=== PATIENT | female | born 1940 | race Caucasian/White ===

== ENCOUNTER 2024-01-15 14:56 | Outpatient (AMB) | payer MEDICARE, SELFPAY ==
--- NOTE | 2024-01-15 14:07 | MHC.PC.OV ---
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 Intake Note: New patient visit Bioinformatics Analyst Required: No Allergies hexachlorophene [From Phisohex] Allergy (Unknown, Verified 01/15/24 14:09) Unknown anabolic steroid Allergy (Unknown, Uncoded 01/15/24 14:09) Unknown warfarin Allergy (Unknown, Uncoded 01/15/24 15:17) nose bleeds Medication List - Last Reconciled 01/15/24 by STEVEN Ohara acetaminophen (Tylenol Extra Strength) 500 mg PO Q6H PRN aspirin 81 mg PO DAILY escitalopram oxalate (Lexapro) 5 mg PO DAILY sotalol 80 mg PO BID Tobacco use date assessed: 01/15/24 Fall risk assessment: 1 Fall in past year Last assessed Fall Risk: 01/15/24 Dental Screening Dental Screen Date: 01/15/24 Did you have a dental visit in the last 12 months?: No Did you have a dental problem in the last 6 months where you did not have access to dental care?: No Was dental information given to patient?: Patient declined HPI HPI Comments History of Present Illness Details The patient is an 83-year-old female with a past medical history of atrial fibrillation, GI bleed and emphysema and anxiety presenting for follow-up. She transferred from my panel at [facility]. She is on oral B12 supplements for B12 deficiency. She reports experiencing fatigue, which began after starting on Sotalol for Atrial fibrillation. She has an ablation in 2016. She is followed by Dr. Grande. 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 She plans to discuss this with him at her follow up in February. She also notes that Lexapro, 10 mg daily. It was started five years ago for anxiety related to her late 's dementia, but questions its current necessity and dosage due to possible contribution to fatigue. She has also had a partial tear in her left rotator cuff for approximately 15 years, characterized by pain upon movement and lying on the shoulder. The pain is currently manageable with Tylenol. Additionally, the patient reports heel pain initially thought to be plantar fasciitis, but was diagnosed as neuralgic pain by a plant breeder scientist, which she finds temporarily relieved through foot soaks and Tyelenol. She had a GI bleed when she was treated with Coumadin. She has been off anticoagulation since then. She declines a bone density test. She had a mammogram within the past year, per patient. She was evaluated for colonoscopy screening, and it was not recommended to proceed due to the risk of complications and her age. She has a history of skin cancer on her nose and sees [facility] annually for exams. Patient was informed and verbally consented to the use of an ambient scribe for clinic note documentation during this visit. ROS - General: Reports excessive fatigue. - Neurologic: Denies focal neurological deficits but reports imbalance when walking her dog uphill she is afraid of falling. She uses her 's cane. - Musculoskeletal: Reports pain in left shoulder with specific movements, and right heel pain when walking. - Psychological: Reports anxiety previously, currently feels well-controlled. PE: Constitutional: Alert, in no distress. Neck: Supple, Full range of motion. No lymphadenopathy. Respiratory: Clear to auscultation. Cardiovascular: S1 S2 regular. No murmurs. Neurologic: No focal neurological deficits. Symmetric patellar reflexes. Moves all extremities spontaneously. Sensation intact bilaterally. Musculoskeletal: Right heel tender to palpation. Positive empty can test with left shoulder exam. Patient has limited abduction with the left shoulder which causes pain. Left shoulder nontender to palpation. Psychiatric: Normal mood and affect. [facility] Medical History (Updated 01/15/24 @ 16:05 by STEVEN Ohara) Heart valve disorder Skin cancer Anxiety Fatigue History of GI bleed History of atrial fibrillation Left rotator cuff tear B12 deficiency Cataracts, bilateral Surgical History Hx of appendectomy Family History (Updated 01/15/24 @ 15:19 by Dolly Mahmood CMA) Mother Alzheimer disease Father Cardiovascular disease Social History (Updated 01/15/24 @ 15:20 by Dolly Mahmood CMA) Housing: Other (mobile home) Alcohol intake: former Patient Tobacco Use Status: Former Tobacco user Cigarette Packs Per Day: 2 Years Smoked: 35 e-Cigarette/Vaping Use: Never Used Second Hand Smoke Exposure: No service: No Current occupational status: retired Cognitive needs: No Hearing needs: Yes (trouble hearing) Vision needs: No Physical exam (Primary Care) Vital Signs: Last Vital Signs Pulse 65 01/15/24 15:20 BP 106/60 01/15/24 15:20 Pulse Ox 95 01/15/24 15:20 Oxygen Delivery Method Room Air 01/15/24 15:20 BMI result Body Mass Index 29.1 Tobacco/Smoking Status: Tobacco use Status Tobacco use date assessed 01/15/24 01/15/24 15:25 Patient Tobacco Use Status Former Tobacco user 01/15/24 15:25 e-Cigarette/Vaping Use Never Used 01/15/24 15:25 Coding Level of Care Code Est Pt Level 4 (10822) Complex EM visit Add On G2211 Diagnoses Fatigue R53.83 B12 deficiency E53.8 History of atrial fibrillation Z86.79 Left rotator cuff tear M75.102 Anxiety F41.9 Skin cancer C44.90 Heart valve disorder I38 Assessment & Plan Assessment & Plan (1) Fatigue: Code(s): R53.83 - Other fatigue Category: Medical (2) B12 deficiency: Code(s): E53.8 - Deficiency of other specified B group vitamins Category: Medical (3) History of atrial fibrillation: Code(s): Z86.79 - Personal history of other diseases of the circulatory system Category: Medical (4) Left rotator cuff tear: Code(s): M75.102 - Unspecified rotator cuff tear or rupture of left shoulder, not specified as traumatic Category: Medical (5) Anxiety: Code(s): F41.9 - Anxiety disorder, unspecified Category: Medical (6) Skin cancer: Code(s): C44.90 - Unspecified malignant neoplasm of skin, unspecified Category: Medical (7) Heart valve disorder: Code(s): I38 - Endocarditis, valve unspecified Category: Medical Plan Cardiovasvular: Continue with the current management approach with Sotalol, with follow-up to reassess fatigue and consider adjustment to medication with cardiology. Fatigue: Potentially due to medication side effects. See below regarding Lexapro. Check labs. Generalized Anxiety Disorder: Reduce Lexapro to 5 mg while monitoring for increased anxiety; revert back to 10 mg if symptoms worsen. Left Rotator Cuff Tear: Continue use of Tylenol as needed for pain management. Discussed potential for physical therapy for strengthening if desired by the patient, though cortisone injection was declined. Refer to physical therapy. Maximum dose of Tylenol 500 to a 1000 mg every 8 hours as needed, 3000 mg per 24 hours. Right Heel Neuralgia: Await further information from podiatry notes for more specific intervention. Consider non-pharmacological approaches including proper footwear and foot soaks. Continue Tylenol as needed for pain control. Refer to physical therapy for gait coordination and fall prevention. Continue annual skin exams with [facility]. Patient declined influenza vaccine. She received RSV vaccine, and she will get the COVID booster at her pharmacy. Follow up in 6 months Orders: Orders Vitamin B12 Today E53.8 - Deficiency of other specified B group vitamins, M75.102 - Unspecified rotator cuff tear or rupture of left shoulder, not specified as traumatic, Z86.79 - Personal history of other diseases of the circulatory system, Z87.19 - Personal history of other diseases of the digestive system TSH reflex Free T4 Today R53.83 - Other fatigue Comprehensive Met. Panel Today E53.8 - Deficiency of other specified B group vitamins, M75.102 - Unspecified rotator cuff tear or rupture of left shoulder, not specified as traumatic, Z86.79 - Personal history of other diseases of the circulatory system, Z87.19 - Personal history of other diseases of the digestive system Complete Blood Count Auto Diff Today E53.8 - Deficiency of other specified B group vitamins, M75.102 - Unspecified rotator cuff tear or rupture of left shoulder, not specified as traumatic, Z86.79 - Personal history of other diseases of the circulatory system, Z87.19 - Personal history of other diseases of the digestive system PT Evaluation and Treatment Today M75.102 - Unspecified rotator cuff tear or rupture of left shoulder, not specified as traumatic, Z91.81 - History of falling
[2024-01-15 15:20] VITALS: BP 106/60; PULSE 65; O2SAT 95; BMI 29.1
== END 2024-01-15 15:59 | disposition home or self-care (01) ==
PROVIDERS: PCP Physician Assistant Medical; Visit Provider Physician Assistant Medical
DX: R53.83 Other fatigue (principal); E53.8 Deficiency of other specified B group vitamins; Z86.79 Personal history of other diseases of the circulatory system; M75.102 Unspecified rotator cuff tear or rupture of left shoulder, not specified as traumatic; F41.9 Anxiety disorder, unspecified; C44.90 Unspecified malignant neoplasm of skin, unspecified; I38 Endocarditis, valve unspecified

== ENCOUNTER → 2024-01-15 14:56 | Outpatient (BNVA) | payer MEDICARE, SELFPAY | PROVIDERS: PCP Physician Assistant Medical; Visit Provider Physician Assistant Medical | DX: R53.83 Other fatigue (principal); E53.8 Deficiency of other specified B group vitamins; M75.102 Unspecified rotator cuff tear or rupture of left shoulder, not specified as traumatic; F41.1 Generalized anxiety disorder; G58.8 Other specified mononeuropathies; I38 Endocarditis, valve unspecified; Z86.79 Personal history of other diseases of the circulatory system; Z85.828 Personal history of other malignant neoplasm of skin; Z79.899 Other long term (current) drug therapy | CPT/HCPCS: 99212 ==

== ENCOUNTER 2024-01-16 10:00 | Outpatient (REF) | payer MEDICARE, SELFPAY ==
[2024-01-16 11:19] LABS: MANUAL DIFF FLAG NO
[2024-01-16 11:24] LABS: Basophils Percent Auto 0.5 % (0-2); Eosinophils Absolute Auto 0.1 X10*3/uL (0.0-0.4); Eosinophils Percent Auto 2.3 % (0-4); Hematocrit 48.6 % (37.0-47.0); Hemoglobin 15.9 g/dl (12.0-16.0); Imm Gran Abs Auto 0.01 X10*3/uL (0.00-0.03); Imm Gran Pct Auto 0.2 % (0.0-0.4); Lymphocytes Percent Auto 17.1 % (20-40); Mean Corpuscular HGB Conc 32.7 g/dl (31.0-35.0); Mean Corpuscular Hemoglobin 32.5 pg (27.0-33.0); Mean Corpuscular Volume 99.4 fL (80.0-98.0); Mean Platelet Volume 9.5 fL (9.4-12.3); Monocytes Absolute Auto 0.6 X10*3/uL (0.1-1.2); Monocytes Percent Auto 10.6 % (2-11); Neutrophils Absolute Auto 4.1 x10*3/uL (2.0-8.3); Neutrophils Percent Auto 69.3 % (45-73); Platelet Count 239 X10*3/uL (160-400); Red Blood Count 4.89 X10*6/uL (4.20-5.50); Red Cell Distribution Width 13.3 % (11.0-16.0)
[2024-01-16 12:30] LABS: Alanine Aminotransferase 16 U/L (0-31); Albumin Level 3.6 g/dL (3.5-5.0); Alkaline Phosphatase 70 U/L (39-117); Anion Gap 13 (12-20); Aspartate Amino Transferase 23 U/L (5-31); Bilirubin Total 0.7 mg/dL (0.0-1.0); Blood Urea Nitrogen 15 mg/dL (9-16); Calcium 9.4 mg/dL (8.4-10.2); Carbon Dioxide 23 mmol/L (22-29); Chloride 106 mmol/L (96-108); Estimated Glomerular Filt Rate > 60; Glucose Random 125 mg/dL (60-115); Potassium 4.2 mmol/L (3.3-5.1); Sodium 138 mmol/L (135-145); TSH reflex Free T4 1.47 uIU/mL (0.32-4.0); Total Protein 6.9 g/dL (6.5-8.0)
[2024-01-16 12:33] LABS: Vitamin B12 522 pg/mL (200-900)
== END 2024-01-16 10:01 | disposition home or self-care (01) ==
LOC: HO.WFDLDS 10:00
PROVIDERS: Visit Provider Physician Assistant Medical
DX: E53.8 Deficiency of other specified B group vitamins (principal); M75.102 Unspecified rotator cuff tear or rupture of left shoulder, not specified as traumatic; Z86.79 Personal history of other diseases of the circulatory system; Z87.19 Personal history of other diseases of the digestive system; R53.83 Other fatigue
CPT/HCPCS: 36415; 80053; 82607; 84443; 85025

== ENCOUNTER 2024-03-03 13:50 | Outpatient (RCR) | payer MEDICARE, SELFPAY ==
--- NOTE | 2024-03-03 15:23 | MHC.PT.EP ---
[facility] [place] Office [place] Office [place] Office [address] [phone] F: [phone] F: [phone] F: [phone] F: [phone] Physical Therapy Plan of Care Date of Evaluation: 03/03/24 Date of Surgery: NA Diagnosis: RC TEAR L, BALANCE DEFICIT Assessment: Pt IS 83 YO F REFERRED TO PT FROM [facility] WITH L SHLDER PAIN (CHRONIC PARTIAL TEAR RC) AND BAL DEFICIT. Pt PRESENT WITH B HIP FLEX WEAKNESS, BALANCE ISSUES, L SHLDER FLEX AND ABD WEAKNESS WITH +MOD IMPINGEMENT TEST. SHOULD BENEFIT FROM PT TO ADDRESS THESE ISSUES Frequency and Duration: The patient will be seen 1X/WK X 8 WKS (40$CO-PAY) Short Term Goals: 1. INCREASED AWARENESS POSTURE AND SHLDER CARE 2. I HEP WITH DC EX PLAN 3. GT WITH LRAD WITHOUT IMBALANCE Correction Goals: 1. NO FALLS 2. DECREASED L SHLDER PAIN AT LEAST 50% WITH ADLS 3. IMPROVED L SHLDER ROM FOR FLEX/ABD X 10-20 DEGREES 4. IMPROVED TIME WITH TUG (13 SEC SOC) AND INCREASED REPS WITH 30 SEC SIT>STAND (1 SOC) Treatment Plan: Modalities to reduce pain, spasms and effusion. Manual therapy to restore motion and function. Therapeutic exercise to improve strength and flexibility. Neuromuscular re-education for posture and balance. Therapeutic activities to return to functional activities of daily living. Electronically signed by: WARNER SIMEON PT Please sign and return to therapist. Thank you for your referral.
--- NOTE | 2024-03-09 13:38 | MHC.PT.OD ---
[facility] [place] Office [place] Office [place] Office [address] [phone] F: [phone] F: [phone] F: [phone] F: [phone] Physical Therapy Daily Note Diagnosis: RC TEAR L, BALANCE DEFICIT Date of Surgery: NA Date of Evaluation: 03/03/24 Date of Treatment: 03/09/24 Treatments to Date: Cancellations to Date: No Shows to Date: Authorized Visits: Insurance End Date: Precautions/ Contraindications:SKIN CA HEART VALVE DISORDER L RTC TEAR (15 YRS AGO) ANXIETY Subjective: Pt WAS AT MD OFFICE FOR ROUTINE CHECK UP AND MENTIONED L SHLDER PAIN AND BALANCE ISSUES Pain Score and Location: 7 L SHLDER Objective Flowsheet: Tests & Measures PT EVAL Exercises BIKE FOR WARM UP PRN INST IN AND PERF AAROM SHLDER FLEX WITH CANE X 5 R SEATED HIP FLEX TO BE DONE X 10 R B (TRIAL SLR BUT SIGNIF CHALLENGE JESSICA ON L)..ABLE TO PERF 5- 8 REPS THEN SIGNIF FATIGUE DIST EX SHEET ED RE EVAL FINDINGS, RX PLAN, POSTURE ED WITH USE TOWEL ROLL LORDOSIS (BORROWED OUR TOWEL BECAUSE HER TOWELS TOO BIG) AND PILLOW FOR L SHLDER SUPPORT Modalities Assessment: 03/09/24: Pt called into the office to state she is electing to cancel all of her future appts due to $40 copayment/visit. Pt was educated re: can absolutely defer copayment and can be set up on payment plan with the billing department. Despite this pt states she is on a fixed income and has been struggling financially for the past year. Therapist inquired if she was receiving any assistance such as MOW which she states she is not interested in my daughter is close. Therapist did not want to pry further however patient may benefit from inquiry to see if she is eligible for any supplemental support?? - May benefit from community navigation screen ? Therapist informed patient she would let her PCP, referring provider Alem Biswas know we spoke. Patient states, Tell Alem I say hi! Pt was seen for initial evaluation with [facility] on 03/03/23 and was given a few exercises. I asked her if she had any questions or concerns regarding the exercises she was given and she mentioned she was irritated with towel roll trial so she was encouraged to stop this. I have had this shoulder issue for years anyway. Pt advised she was welcome to think about options and we let her know she can call back should she change her mind. Pt IS 83 YO F REFERRED TO PT FROM [facility] WITH L SHLDER PAIN (CHRONIC PARTIAL TEAR RC) AND BAL DEFICIT. Pt PRESENT WITH B HIP FLEX WEAKNESS, BALANCE ISSUES, L SHLDER FLEX AND ABD WEAKNESS WITH +MOD IMPINGEMENT TEST. SHOULD BENEFIT FROM PT TO ADDRESS THESE ISSUES PT Plan: Pt electing to stop therapy due to financial cost $40 copay/visit Short Term Goals: 1. INCREASED AWARENESS POSTURE AND SHLDER CARE 2. I HEP WITH DC EX PLAN 3. GT WITH LRAD WITHOUT IMBALANCE Film Mounter Goals: 1. NO FALLS 2. DECREASED L SHLDER PAIN AT LEAST 50% WITH ADLS 3. IMPROVED L SHLDER ROM FOR FLEX/ABD X 10-20 DEGREES 4. IMPROVED TIME WITH TUG (13 SEC SOC) AND INCREASED REPS WITH 30 SEC SIT>STAND (1 SOC) Electronically signed by: Danyelle Mccauley, PT, DPT
== END 2024-03-23 09:27 | disposition home or self-care (01) ==
LOC: HO.PTWFD 13:50
PROVIDERS: PCP Physician Assistant Medical; Visit Provider Physician Assistant Medical
DX: M75.102 Unspecified rotator cuff tear or rupture of left shoulder, not specified as traumatic (principal); Z91.81 History of falling
CPT/HCPCS: 97110; 97162; 97535

== ENCOUNTER 2024-07-12 11:43 | Outpatient (AMB) | payer MEDICARE, SELFPAY ==
--- NOTE | 2024-07-12 11:50 | MHC.PC.OV ---
Vital Signs 07/12/24 11:57 Height 5 ft 5.5 in Weight 185 lb 2 oz BMI 30.3 BP 104/68 Blood Pressure Location Rt brachial Position Sitting Pulse 75 Pulse Source Pulse Oximeter Temp 98.6 F Temp Source Temporal Artery Scan Pulse Oximetry (%) 95 Oxygen Delivery Method Room Air Intake Visit Reasons: follow up - see comments Intake Note: Kate presents in the office today for a follow up. Allergies hexachlorophene [From Phisohex] Allergy (Unknown, Verified 07/12/24 11:53) Unknown Seasonal Allergies Allergy (Verified 07/12/24 11:53) Cough anabolic steroid Allergy (Unknown, Uncoded 07/12/24 11:53) Unknown warfarin Allergy (Unknown, Uncoded 07/12/24 11:53) nose bleeds Tobacco use date assessed: 07/12/24 Fall risk assessment: 2 + Falls in past year Last assessed Fall Risk: 07/12/24 Dental Screening Dental Screen Date: 07/12/24 Did you have a dental visit in the last 12 months?: No Did you have a dental problem in the last 6 months where you did not have access to dental care?: No Was dental information given to patient?: Patient declined HPI HPI Comments History of Present Illness Details The patient is an 83-year-old female with a past medical history of atrial fibrillation, GI bleed and emphysema and anxiety presenting for follow-up. She is on oral B12 supplements for B12 deficiency. She reports stable fatigue which began after starting on Sotalol for Atrial fibrillation. She has an ablation in 2017. She is followed by Dr. Grande. Patient reported she was diagnosed with a leaky valve by echocardiogram. She is overdue for follow up. She denies chest pain, palpitations, dizziness, syncope or leg swelling. She takes a baby aspirin daily. She was previously on Coumadin which was discontinued due to GI bleed. Anxiety-she reduce the dose of Lexapro from 10 mg to 5 mg after her last appointment, and she is feeling fine on this. It was started five years ago for anxiety related to her late 's dementia. Her depression screening is mildly positive, but she is not interested in increasing the dose of the medication. Declines therapy. Patient [place] the [place] in [place]. She really likes it there. Patient says she has very good friends, and she has a dog that she walks 4 or 5 times a day. She is content. She has also had a partial tear in her left rotator cuff for approximately 15 years, characterized by pain upon movement and lying on the shoulder. The pain is currently manageable with Tylenol as needed. She went to physical therapy, but 1 session was 45 dollars so she stopped going after that. She stretches at home. Her symptoms are stable. She is not interested in further evaluation or therapy at this time or x-rays. She has a history of skin cancer on her nose and sees [facility] annually for exams. She declines colonscopy, mammogram, bone density test. She also declines immunizations. ROS: Constitutional: No unexplained weight loss, fever, chills, increased fatigue or night sweats. Respiratory: No shortness of breath, cough or sputum production. Cardiovascular: No chest pain, chest pressure or chest discomfort. No palpitations or pedal edema. Gastrointestinal: No anorexia, nausea, vomiting or diarrhea. No abdominal pain or blood in stool. Neurologic: No headache, dizziness, syncope, unilateral weakness, ataxia, numbness or tingling in the extremities. Musculoskeletal: See HPI Skin: No rash Psychiatric: See HPI Physical exam: Constitutional: Alert, in no distress. Neck: Supple, Full range of motion. No lymphadenopathy. Respiratory: Clear to auscultation. Cardiovascular: S1 S2 regular. No murmurs. Gastrointestinal: Patient declined exam. Neurologic: No focal neurological deficits. Musculoskeletal: No gross deformities. Normal range of motion. Extremities: Warm and well perfused. No clubbing, cyanosis or edema. Psychiatric: Normal mood and affect [facility] Medical History (Updated 01/15/24 @ 16:05 by STEVEN Ohara) Heart valve disorder Skin cancer Anxiety Fatigue History of GI bleed History of atrial fibrillation Left rotator cuff tear B12 deficiency Cataracts, bilateral Surgical History Hx of appendectomy Family History Mother Alzheimer disease Father Cardiovascular disease Social History (Updated 07/12/24 @ 11:55 by Rupa Gonzalez MA) Housing: Other (mobile home) Alcohol intake: current Comment: Wine Patient Tobacco Use Status: Former Tobacco user Cigarette Packs Per Day: 2 Years Smoked: 35 e-Cigarette/Vaping Use: Never Used Second Hand Smoke Exposure: No service: No Current occupational status: retired Cognitive needs: No Hearing needs: Yes (trouble hearing) Vision needs: No Questionnaire PHQ-9 Over the last 2 weeks, how often have you been bothered by any of the following problems? 1. Little interest or pleasure in doing things: several days 2. Feeling down, depressed, or hopeless: several days 3. Trouble falling or staying asleep, or sleeping too much: not at all 4. Feeling tired or having little energy: several days 5. Poor appetite or overeating: more than half the days 6. Feeling bad about yourself - or that you are a failure or have let yourself or your family down: not at all 7. Trouble concentrating on things, such as reading the newspaper or watching television: not at all 8. Moving or speaking so slowly that other people could have noticed. Or the opposite - being so fidgety or restless that you have been moving around a lot more than usual: not at all 9. Thoughts that you would be better off or of hurting yourself in some way: not at all Total score: 5 Depression Screening Interpretation: Positive Depression Screening Follow-up: Existing condition Depression Screening Done: Yes 94700 - PHQ-9 Billing: Yes Source: Developed by Drs. Cornelio Richardson, Mindy Chavez, Golden Knutson and colleagues, with an educational deya from [employer]. Thrive Questionnaire Date Thrive assessed: 07/12/24 I am a: Patient What is your living situation today?: I have a steady place to live Within the past 12 months, did the food you bought not last and you didn't have the money to get more?: Never true Within the past 12 months, did you worry whether your food would run out before you got money to buy more?: Never true Do you have trouble paying for medicines?: No Do you have trouble getting transportation to medical appointments?: No Do you have trouble paying your heating and electricity bill?: No Do you have trouble taking care of your child, family member or friend?: No Do you have trouble with day-to-day activities such as bathing, preparing meals, shopping, managing finances, etc.?: No Are you currently unemployed and looking for a job?: No Are you interested in more education?: No Please select the resources that you would like help with: None Currently or been in a relationship where the following occur: I choose not to answer THRIVE Score: 0 AUDIT C Alcohol Use Questionnaire (AUDIT-C) 1. How often do you have a drink containing alcohol?: Monthly or less 2. How many drinks containing alcohol do you have on a typical day when you are drinking?: 1 or 2 3. How often do you have six or more drinks on one occasion?: Never Total Score: 1 Score Reviewed/Action Taken: No CHASE-7 AMB Questionnaire CHASE-7 Date CHASE - 7 assessed: 07/12/24 Feeling nervous, anxious, or on edge: 0 = Not at all Not being able to stop or control worryin = Several days Worrying too much about different things: 0 = Not at all Trouble relaxin = Not at all Being so restless that it is hard to sit still: 0 = Not at all Becoming easily annoyed or irritable: 0 = Not at all Feeling afraid as if something awful might happen: 0 = Not at all Total CHASE-7 score (0-4 normal; 5-9 mild; 10-14 moderate; 15-21 severe): 1 Source: Developed by Drs. Cornelio Richardson, Mindy Chavez, Golden Knutson and colleagues, with an educational deya from [employer]. CHASE-7 Assessment Billing CHASE-7 Assessment Tool: CHASE-7 Assessment 83307 Physical exam (Primary Care) Tobacco/Smoking Status: Tobacco use Status Tobacco use date assessed 01/15/24 07/12/24 11:51 Patient Tobacco Use Status Former Tobacco user 07/12/24 11:55 e-Cigarette/Vaping Use Never Used 07/12/24 11:55 Depression Screening Interpretation: Positive Depression Screening Follow-up: Existing condition Currently or been in a relationship where the following occur: I choose not to answer Coding Level of Care Code Est Pt Level 4 (29929) Complex EM visit Add On G2211 Diagnoses B12 deficiency E53.8 History of atrial fibrillation Z86.79 Left rotator cuff tear M75.102 Anxiety F41.9 Skin cancer C44.90 Additional Codes PHQ-9 - 33425 - PHQ-9 Billing: Yes ([id number]) CHASE-7 Assessment Billing - CHASE-7 Assessment Tool: CHASE-7 Assessment 81970 ([id number]) Assessment & Plan Assessment & Plan (1) B12 deficiency: Code(s): E53.8 - Deficiency of other specified B group vitamins Category: Medical Plan: Continue supplementation. Check B12. Check blood count. (2) History of atrial fibrillation: Code(s): Z86.79 - Personal history of other diseases of the circulatory system Category: Medical Plan: Followed by Cardiology. She is overdue for follow up but stable. Placed routine referral. Continue sotalol and baby aspirin. (3) Left rotator cuff tear: Code(s): M75.102 - Unspecified rotator cuff tear or rupture of left shoulder, not specified as traumatic Category: Medical Plan: Recommended x-ray to make sure there are no other causes for symptoms like advanced osteoarthritis or a bone tumor or growth. Patient declined at this time. She is not interested in further evaluation or treatment right now. (4) Anxiety: Code(s): F41.9 - Anxiety disorder, unspecified Category: Medical Plan: Stable. Continue Lexapro 5 mg daily. (5) Skin cancer: Code(s): C44.90 - Unspecified malignant neoplasm of skin, unspecified Category: Medical Plan: Continue skin exams per Dermatology. Plan Follow up in 6 months. Orders: Orders Vitamin B12 and Folate Today E53.8 - Deficiency of other specified B group vitamins, F41.9 - Anxiety disorder, unspecified, I38 - Endocarditis, valve unspecified, Z86.79 - Personal history of other diseases of the circulatory system Basic Metabolic Panel Today E53.8 - Deficiency of other specified B group vitamins, F41.9 - Anxiety disorder, unspecified, I38 - Endocarditis, valve unspecified, Z86.79 - Personal history of other diseases of the circulatory system Lipid Panel Today E53.8 - Deficiency of other specified B group vitamins, F41.9 - Anxiety disorder, unspecified, I38 - Endocarditis, valve unspecified, Z86.79 - Personal history of other diseases of the circulatory system Complete Blood Count Auto Diff Today E53.8 - Deficiency of other specified B group vitamins, F41.9 - Anxiety disorder, unspecified, I38 - Endocarditis, valve unspecified, Z86.79 - Personal history of other diseases of the circulatory system Referrals Cardiology Referral I38 - Endocarditis, valve unspecified, Z86.79 - Personal history of other diseases of the circulatory system
[2024-07-12 11:57] VITALS: BP 104/68; PULSE 75; TEMP 37; O2SAT 95; BMI 30.3
--- OUTSIDE RECORDS SUMMARY | 2024-07-12 12:30 | XMS_ITS | Clinical Summary ---
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 Name Role Phone Unavailable Primary Care Provider Unavailabl e Social History Tobacco Use Types Packs/Day Years Used Date Smoking Tobacco: Never Assessed Comments Unknown Sex and Gender Information Value Date Recorded Sex Assigned at Not on file Legal Sex Female 7:35 PM EST Gender Identity Not on file Sexual Orientation Not on file Plan of Treatment Health Maintenance Due Date Last Done Comments DTaP,Tdap,and Td Vaccines (1 - Tdap) 1959 Pneumococcal Vaccine: 50+ Ye ars (1 of 1 - PCV) 1988 Zoster Vaccines (1 of 2) 1988 RSV Immunization Adult Patie nts (1 - 1-dose 75+ series) 2013 COVID-19 Vaccine ( - 2023-2 5 season) 2023 Influenza Vaccine (Season Ended) 2024 HIB Vaccines Aged Out No longer eligi ble based on patient's age to complete this topic HPV Vaccines Aged Out No longer eligi ble based on patient's age to complete this topic Hepatitis A Vaccines Aged Out No long er eligible based on patient's age to complete this topic Hepatitis B Vaccines Aged Out No long er eligible based on patient's age to complete this topic IPV Vaccines Aged Out No longer eligi ble based on patient's age to complete this topic MMR Vaccines Aged Out No longer eligi ble based on patient's age to complete this topic Meningococcal ACWY Vaccine Aged Out N o longer eligible based on patient's age to complete this topic Meningococcal B Vaccine Aged Out No l onger eligible based on patient's age to complete this topic RSV Immunization Patients Un ines 20 months Aged Out No longer eligible b ased on patient's age to complete this topic Varicella Vaccines Aged Out No longer eligible based on patient's age to complete this topic
== END 2024-07-12 12:23 | disposition home or self-care (01) ==
LOC: HO.HMCFM 11:44
PROVIDERS: PCP Physician Assistant Medical; Visit Provider Physician Assistant Medical
DX: E53.8 Deficiency of other specified B group vitamins (principal); Z86.79 Personal history of other diseases of the circulatory system; M75.102 Unspecified rotator cuff tear or rupture of left shoulder, not specified as traumatic; F41.9 Anxiety disorder, unspecified; C44.90 Unspecified malignant neoplasm of skin, unspecified

== ENCOUNTER → 2024-07-12 11:43 | Outpatient (BNVA) | payer MEDICARE, SELFPAY | PROVIDERS: PCP Physician Assistant Medical; Visit Provider Physician Assistant Medical | DX: I48.91 Unspecified atrial fibrillation (principal); J43.9 Emphysema, unspecified; E53.8 Deficiency of other specified B group vitamins; M75.102 Unspecified rotator cuff tear or rupture of left shoulder, not specified as traumatic; F41.9 Anxiety disorder, unspecified; I38 Endocarditis, valve unspecified; C44.90 Unspecified malignant neoplasm of skin, unspecified; Z86.79 Personal history of other diseases of the circulatory system | CPT/HCPCS: 96127; 99212 ==

== ENCOUNTER 2024-07-13 10:01 | Outpatient (REF) | payer MEDICARE, SELFPAY ==
--- OUTSIDE RECORDS SUMMARY | 2024-07-13 11:12 | XMS_ITS | Clinical Summary ---
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
[2024-07-13 11:26] LABS: MANUAL DIFF FLAG NO
[2024-07-13 12:00] LABS: Basophils Percent Auto 0.5 % (0-2); Eosinophils Absolute Auto 0.2 X10*3/uL (0.0-0.4); Eosinophils Percent Auto 2.8 % (0-4); Hematocrit 50.1 % (37.0-47.0); Hemoglobin 16.1 g/dl (12.0-16.0); Imm Gran Abs Auto 0.02 X10*3/uL (0.00-0.03); Imm Gran Pct Auto 0.3 % (0.0-0.4); Lymphocytes Absolute Auto 0.8 X10*3/uL (1.2-4.9); Lymphocytes Percent Auto 13.9 % (20-40); Mean Corpuscular HGB Conc 32.1 g/dl (31.0-35.0); Mean Corpuscular Hemoglobin 32.7 pg (27.0-33.0); Mean Corpuscular Volume 101.6 fL (80.0-98.0); Mean Platelet Volume 9.5 fL (9.4-12.3); Monocytes Absolute Auto 0.5 X10*3/uL (0.1-1.2); Monocytes Percent Auto 8.8 % (2-11); Neutrophils Absolute Auto 4.3 x10*3/uL (2.0-8.3); Neutrophils Percent Auto 73.7 % (45-73); Platelet Count 252 X10*3/uL (160-400); Red Blood Count 4.93 X10*6/uL (4.20-5.50); Red Cell Distribution Width 13.3 % (11.0-16.0); White Blood Count 5.8 X10*3/uL (4.8-10.8)
[2024-07-13 12:28] LABS: Anion Gap 15 (12-20); Blood Urea Nitrogen 16 mg/dL (9-16); Calcium 9.3 mg/dL (8.4-10.2); Carbon Dioxide 24 mmol/L (22-29); Chloride 106 mmol/L (96-108); Cholesterol 192 mg/dL (<200); Estimated Glomerular Filt Rate > 60; Glucose Random 83 mg/dL (60-115); HDL Cholesterol 64 mg/dL (>40); LDL Cholesterol Calculated 109 mg/dL (<100); Potassium 4.4 mmol/L (3.3-5.1); Sodium 141 mmol/L (135-145); Triglycerides 95 mg/dL (<150)
[2024-07-13 13:07] LABS: Folate 4.6 ng/mL (> or = 4.0); Vitamin B12 833 pg/mL (200-900)
== END 2024-07-13 10:02 | disposition home or self-care (01) ==
LOC: HO.WFDLDS 10:01
PROVIDERS: Visit Provider Physician Assistant Medical
DX: I38 Endocarditis, valve unspecified (principal); F41.9 Anxiety disorder, unspecified; E53.8 Deficiency of other specified B group vitamins; Z86.79 Personal history of other diseases of the circulatory system
CPT/HCPCS: 36415; 80048; 80061; 82607; 82746; 85025

== ENCOUNTER 2024-11-18 15:36 | Outpatient (AMB) | payer MEDICARE, SELFPAY ==
--- NOTE | 2024-11-18 15:50 | A.OFFPC_ITS ---
Vital Signs 11/18/24 15:53 Height 5 ft 5.5 in Weight 181 lb 2 oz BMI 29.7 BP 120/72 Blood Pressure Location Rt brachial Position Sitting Respiration 15 Pulse 63 Pulse Source Pulse Oximeter Temp 97.9 F Temp Source Temporal Artery Scan Pulse Oximetry (%) 93 Oxygen Delivery Method Room Air Intake Visit Reasons: bowel issues Intake Note: Kate presents in the office today with bowel issues. Allergies hexachlorophene (From Phisohex) Allergy (Unknown, Verified 11/18/24 15:52) Unknown Seasonal Allergies Allergy (Verified 11/18/24 15:52) Cough anabolic steroid Allergy (Unknown, Uncoded 11/18/24 15:52) Unknown warfarin Allergy (Unknown, Uncoded 11/18/24 15:52) nose bleeds Medication List - Last Reconciled 11/18/24 by STEVEN Ohara acetaminophen (Tylenol Extra Strength) 500 mg PO Q6H PRN aspirin 81 mg PO DAILY escitalopram oxalate (Lexapro) 5 mg PO DAILY sotalol 80 mg PO BID Tobacco use date assessed: 11/18/24 Dental Screening Dental Screen Date: 11/18/24 Did you have a dental visit in the last 12 months?: No Did you have a dental problem in the last 6 months where you did not have access to dental care?: No Was dental information given to patient?: Patient declined HPI HPI Comments History of Present Illness Details The patient is an 83-year-old female with a past medical history of atrial fibrillation, GI bleed and COPD/emphysema and anxiety presenting for follow-up. She doesn't eat that much for breakfast and lunch. When she eats dinner were her main meal of the day she has to go to the bathroom immediately. Eating salad or corn exacerbate symptoms. This started around February 2024. She has abdominal cramping alleviated by passing a bowel movement. In the last few months she notices stools are mostly diarrhea. No new medications or dietary changes. She is unsure when she last had a colonoscopy. She believes it was at least 5 years ago at [facility]. Denies family history of GI malignancy. Drinks a glass of wine once per week. Denies significant weight loss. She fluctuates between 180 and 185 lb. Denies decreased appetite. Denies nausea, vomiting, fevers or chills. Denies blood in her stools. I asked if there is anything else she has noticed that has been different over the past few months. Patient says she has not been able to catch her breath when she walks up the small heel outside her house with her dog for about 3 months. She associates this with a tightness in her chest, but she denies chest pain. She has mild swelling in her ankles, but she is unsure if that is more chronic. She was evaluated by [facility] pulmonology in the past for COPD and emphysema. She says medications and pulmonary rehab never did anything for her. Denies coughing and wheezing. Denies hemoptysis. Denies history of blood clots. She is on oral B12 supplements for B12 deficiency. She previously reported chronic fatigue on Sotalol for Atrial fibrillation. She has an ablation in 2017. She is followed by Dr. Grande. Patient reported she was diagnosed with a leaky valve by echocardiogram. She was previously on Coumadin which was discontinued due to GI bleed. She is on a baby aspirin daily. She does not recall the last time she had an echocardiogram, but she says it was a long time ago. ROS: Constitutional: Endorses increased fatigue. Denies fevers, chills, night sweats or unexplained weight loss. Respiratory: See HPI Cardiovascular: Denies palpitations. See HPI. Gastrointestinal: No acid reflux, nausea, vomiting, blood in stools. See HPI Genitourinary: No dysuria, hematuria, urinary frequency. Neurologic: No headache, dizziness, syncope, unilateral weakness, ataxia, numbness or tingling in the extremities. Endocrine: No cold or heat intolerance. No polyuria or polydipsia. Physical exam: Constitutional: Alert, in no distress. Head: Normocephalic. Eyes: Pupils are equal, round and reactive to light. Extraocular muscles intact. Neck: Supple, Full range of motion. No lymphadenopathy. No palpable thyroid masses. Respiratory: Clear to auscultation. Cardiovascular: S1 S2 regular. No murmurs. . Gastrointestinal: Abdomen soft, non-tender, non-distended. Normal bowel sounds. No palpable masses. Normoactive bowel sounds in 4 quadrants. Neurologic: No focal neurological deficits Extremities: Warm and well perfused. No clubbing, cyanosis. 1+ bilateral lower extremity edema. Calves nontender, no erythema or calor. Psychiatric: Normal mood and affect [facility] Medical History (Updated 11/18/24 @ 16:59 by STEVEN Ohara) Change in bowel habit Emphysema lung Diarrhea Chest tightness DIEGO (dyspnea on exertion) Abnormal CBC Heart valve disorder Skin cancer Anxiety Fatigue History of GI bleed History of atrial fibrillation Left rotator cuff tear B12 deficiency Cataracts, bilateral Surgical History Hx of appendectomy Family History Mother Alzheimer disease Father Cardiovascular disease Social History (Updated 11/18/24 @ 15:53 by Rupa Gonzalez CMA) Housing: Other (mobile home) Alcohol intake: current Comment: Wine Patient Tobacco Use Status: Former Tobacco user Cigarette Packs Per Day: 2 Years Smoked: 35 e-Cigarette/Vaping Use: Never Used Second Hand Smoke Exposure: No service: No Current occupational status: retired Cognitive needs: No Hearing needs: Yes (trouble hearing) Vision needs: No Questionnaire PHQ-9 Over the last 2 weeks, how often have you been bothered by any of the following problems? 8. Moving or speaking so slowly that other people could have noticed. Or the opposite - being so fidgety or restless that you have been moving around a lot more than usual: not at all 9. Thoughts that you would be better off or of hurting yourself in some way: not at all Source: Developed by Drs. Cornelio Richardson, Mindy Chavez, Golden Knutson and colleagues, with an educational deya from [facility]. Thrive Questionnaire Date Thrive assessed: 11/18/24 I am a: Patient What is your living situation today?: I have a steady place to live Within the past 12 months, did the food you bought not last and you didn't have the money to get more?: Never true Within the past 12 months, did you worry whether your food would run out before you got money to buy more?: Never true Do you have trouble paying for medicines?: No Do you have trouble getting transportation to medical appointments?: No Do you have trouble paying your heating and electricity bill?: Yes Do you have trouble taking care of your child, family member or friend?: No Do you have trouble with day-to-day activities such as bathing, preparing meals, shopping, managing finances, etc.?: No Are you currently unemployed and looking for a job?: No Are you interested in more education?: No Please select the resources that you would like help with: None Currently or been in a relationship where the following occur: No concerns reported THRIVE Score: 1 AUDIT C Alcohol Use Questionnaire (AUDIT-C) 1. How often do you have a drink containing alcohol?: 2-4 times a month 2. How many drinks containing alcohol do you have on a typical day when you are drinking?: 1 or 2 3. How often do you have six or more drinks on one occasion?: Never Total Score: 2 CHASE-7 AMB Questionnaire CHASE-7 Date CHASE - 7 assessed: 07/12/24 Feeling nervous, anxious, or on edge: 0 = Not at all Not being able to stop or control worryin = Not at all Worrying too much about different things: 0 = Not at all Trouble relaxin = Not at all Being so restless that it is hard to sit still: 0 = Not at all Becoming easily annoyed or irritable: 0 = Not at all Feeling afraid as if something awful might happen: 0 = Not at all Total CHASE-7 score (0-4 normal; 5-9 mild; 10-14 moderate; 15-21 severe): 0 Source: Developed by Drs. Cornelio Richardson, Mindy Chavez, Golden Knutson and colleagues, with an educational deya from [facility]. Physical exam (Primary Care) Vital Signs: Last Vital Signs Temp 97.9 F 11/18/24 15:53 Pulse 63 11/18/24 15:53 Resp 15 11/18/24 15:53 BP 120/72 11/18/24 15:53 Pulse Ox 93 11/18/24 15:53 Oxygen Delivery Method Room Air 11/18/24 15:53 BMI result Body Mass Index 29.7 Tobacco/Smoking Status: Tobacco use Status Tobacco use date assessed 11/18/24 11/18/24 15:56 Patient Tobacco Use Status Former Tobacco user 11/18/24 15:53 e-Cigarette/Vaping Use Never Used 11/18/24 15:53 Thrive Assessment: Date of Thrive Assessment Date Thrive assessed 11/18/24 11/18/24 15:51 Currently or been in a relationship where the following occur: No concerns reported Office Procedures EKG Details: EKG with sinus bradycardia and right bundle branch block. Reviewed by Dr. Vasquez. No acute ischemic change. 54286-[id number], Complete Coding Level of Care Code Est Pt Level 5 (81309) Complex EM visit Add On G2211 Diagnoses Heart valve disorder I38 DIEGO (dyspnea on exertion) R06.09 Chest tightness R07.89 Diarrhea, unspecified type R19.7 Diarrhea type: unspecified type CPT Codes EKG - CPT: 11201-[id number], Complete ([id number]) Time Spent (min) 52 Comment Direct patient care, completing documentation Assessment & Plan Assessment & Plan (1) Heart valve disorder: Code(s): I38 - Endocarditis, valve unspecified Category: Medical (2) DIEGO (dyspnea on exertion): Code(s): R06.09 - Other forms of dyspnea Category: Medical (3) Chest tightness: Code(s): R07.89 - Other chest pain Category: Medical (4) Diarrhea: Code(s): R19.7 - Diarrhea, unspecified Category: Medical Qualifiers: Diarrhea type: unspecified type Qualified Code(s): R19.7 - Diarrhea, unspecified Plan In summary this is an 83-year-old female presenting with changes in bowel habits over the past 8 or 9 months with frequent episodes of nonbloody diarrhea. Differential includes GI malignancy, food intolerance or sensitivity, IBS, stress manifestation. Ordered GI panel, stool occult blood x3, blood work, GI consult. Recommended starting probiotics. She also reports dyspnea on exertion associated with chest tightness for the la st few months. This could be related to her diagnosis of emphysema/COPD, but given her age and history of a valve disorder I am concerned there could be a cardiac etiology. PE is also considered though less likely given chronicity of symptoms. Check D-dimer and troponin. Check labs for anemia, electrolyte imbalance and renal or hepatic impairment. She will have a chest x-ray completed. Ordered echocardiogram and pharmacologic stress test. Referred back to Cardiology. I am also referring her to [facility] since she no longer follows with her specialist at [facility] and wants another opinion. Follow up in 1 month. Orders: Orders AMB EKG-In Office Today R06.09 - Other forms of dyspnea GI Panel Today I38 - Endocarditis, valve unspecified, R06.09 - Other forms of dyspnea, R07.89 - Other chest pain, R19.7 - Diarrhea, unspecified Complete Blood Count Auto Diff Today I38 - Endocarditis, valve unspecified, R06.09 - Other forms of dyspnea, R07.89 - Other chest pain, R19.7 - Diarrhea, unspecified Vitamin B12 and Folate Today D64.9 - Anemia, unspecified, I38 - Endocarditis, valve unspecified, R06.09 - Other forms of dyspnea, R07.89 - Other chest pain, R19.7 - Diarrhea, unspecified TSH reflex Free T4 Today I38 - Endocarditis, valve unspecified, R06.09 - Other forms of dyspnea, R07.89 - Other chest pain, R19.7 - Diarrhea, unspecified IRON PROFILE Today D64.9 - Anemia, unspecified, I38 - Endocarditis, valve unspecified, R06.09 - Other forms of dyspnea, R07.89 - Other chest pain, R19.7 - Diarrhea, unspecified CA echo transthoracic complete Today R06.09 - Other forms of dyspnea, R07.89 - Other chest pain XR chest 2V Today R06.09 - Other forms of dyspnea Ferritin Today D64.9 - Anemia, unspecified, I38 - Endocarditis, valve unspecified, R06.09 - Other forms of dyspnea, R07.89 - Other chest pain, R19.7 - Diarrhea, unspecified Amylase Today I38 - Endocarditis, valve unspecified, R06.09 - Other forms of dyspnea, R07.89 - Other chest pain, R19.7 - Diarrhea, unspecified Lipase Today I38 - Endocarditis, valve unspecified, R06.09 - Other forms of dyspnea, R07.89 - Other chest pain, R19.7 - Diarrhea, unspecified Comprehensive Met. Panel Today I38 - Endocarditis, valve unspecified, R06.09 - Other forms of dyspnea, R07.89 - Other chest pain, R19.7 - Diarrhea, unspecified AMB Stool Occult Bld x3 gFOBT Today I38 - Endocarditis, valve unspecified, R06.09 - Other forms of dyspnea, R07.89 - Other chest pain, R19.7 - Diarrhea, unspecified, Z12.11 - Encounter for screening for malignant neoplasm of colon, Z12.12 - Encounter for screening for malignant neoplasm of rectum D Dimer High Sensitivity Today I38 - Endocarditis, valve unspecified, R06.09 - Other forms of dyspnea, R07.89 - Other chest pain, R19.7 - Diarrhea, unspecified Troponin-I High Sensitivity Today I38 - Endocarditis, valve unspecified, R06.09 - Other forms of dyspnea, R07.89 - Other chest pain, R19.7 - Diarrhea, u nspecified UA CC w/rflx Micro + Cult Today R06.09 - Other forms of dyspnea, R07.89 - Other chest pain NM cardiolite stress test Today R06.09 - Other forms of dyspnea, R07.89 - Other chest pain CA lexiscan stress w klapana Today R06.09 - Other forms of dyspnea, R07.89 - Other chest pain Referrals Cardiology Referral R06.09 - Other forms of dyspnea, R07.89 - Other chest pain Pulmonology Referral J43.9 - Emphysema, unspecified, R06.09 - Other forms of dyspnea Gastroenterology Referral R19.4 - Change in bowel habit, R19.7 - Diarrhea, unspecified
[2024-11-18 15:53] VITALS: BP 120/72; PULSE 63; RESP 15; TEMP 36.6; O2SAT 93; BMI 29.7
--- OUTSIDE RECORDS SUMMARY | 2024-11-18 19:42 | XMS_ITS | Clinical Summary ---
Author Organization On [facility] Address [facility] [place] [address] Care Team Providers Care Corrosion Control Fitter Name Role Phone Unavailable Primary Care Provider Unavailabl e Allergies Active Allergy Reactions Criticality Noted Date Comments Prednisone Other (See Comments) 05/21/2017 Causes nose bleeds and vaginal bleeding / this happens with all steroids Medications acetaminophen (TYLENOL) 500 mg Tablet Take 2 tablets by mouth every 6 hours as needed for Pain. 30 tablet 1 7 Active aspirin 81 mg Tablet, Delayed Release (E.C.) Take 81 mg by mouth daily. Active sotaloL (Betapace) 80 mg TabletIndications :Paroxysmal atrial fibrillation Take 1 tablet by mouth 2 times daily. 180 tablet 1 0 Active escitalopram (Lexapro) 10 mg Tablet Take 1.5 tablets by mouth daily. 135 tablet 3 0 Active Active Problems Patient Care Coordination No te Formatting of this note migh t be different from the original. 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 Rao is also a pt of Dr Bob. gets out of home for 2 hrs every Friday for respite, neighbor watches pt. Problem Noted Date Diagnosed Date Left knee injury 02/27/2018 Neck mass 12/02/2017 Anemia 12/02/2017 Hx of diverticular bleed--- July 2017, INR was 2 .5 08/01/2017 Mitral valve disease 12/22/2016 Overview (12/22/2016): Apr 2016: MR noted on [facility] at time of AF ablation Emphysema--- centrilobular, apical predominant 1 Overview (12/22/2016): April 2016: noted on CT scan of lungs Atrial fibrillation 04/29/2016 Overview (08/10/2017): April 2016: admitted in AF. Had PVI and was started on sotalol June 2016: Ziopatch showed 2 episodes of AF Assessment & Plan (05/20/2016 10:06 AM EDT): May have episodes of brief AF at home May be having adverse effect of metopolol Will reduce metoprolol to 25 mg once daily Will begin warfarin today. INR on . 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 RBBB. 07/28/2012 04/29/2016 Overview (07/29/2012): 06/2012: rare palpitations noted while under stress with having a small stroke and having decided to retire. ~20% APC on Holter and many short runs, the longest 10 beats. As minimally symptomatic, decided to not intervene. Immunizations Immunization Administration Dates Next Due Influenza Trivalent w/Preservative 11/25/2008 Pneumococcal 23-Valent Polysaccharide (Pneumovax 23) 11/25/2008 Family History Medical History Relation Comments Breast Cancer Paternal Aunt Relation Status Comments Paternal Aunt Social History Tobacco Use Types Packs/Day Years Used Date Smoking Tobacco: Former Cigarettes Q uit: 07/29/1988 Smokeless Tobacco: Never Alcohol Use Standard Drinks/Week Comments Yes 0 (1 standard drink = 0.6 oz pur e alcohol) 1.5 glasses of wine monthly Comments No Sex and Gender Information Value Date Recorded Sex Assigned at Not on file Legal Sex Female 5:31 AM EST Gender Identity Not on file Sexual Orientation Not on file Last Filed Vital Signs Vital Sign Reading Time Taken Comments Blood Pressure 129/84 09/02/2019 11:30 AM EDT Pulse 67 09/02/2019 11:30 AM EDT Temperature 36.9 C (98.5 F) 09/02/2019 11:30 AM EDT Respiratory Rate 16 09/02/2019 11:30 AM EDT Oxygen Saturation 96% 09/02/2019 11:30 AM EDT Inhaled Oxygen Concentration - - Weight 93 kg (205 lb) 09/02/2019 11:30 AM EDT Height 170.2 cm (5' 7.01 ) 09/02/2019 11:30 AM E DT Body Mass Index 32.1 09/02/2019 11:30 AM EDT Plan of Treatment Health Maintenance Due Date Last Done Comments Tetanus/Diphtheria/Pertussis Vaccines (1 - Tdap) 1959 Zoster vaccine (1 of 2) 1988 Bone Density Scan 12/01/2003 Pneumoccocal Vaccine: 50+ (2 of 2 - PCV) 11/25/2009 11/25/2008 RSV Vaccine (1 - 1-dose 75+ series) 2013 Covid-19 Vaccine (1 - 2023-2 5 season) 2024 Influenza (Flu) vaccine (1 o f 1 - Influenza standard series) 10/25/2024 11/25/2008 Breast Cancer screening Discontinued 02/07/20 16, 02/23/2015, 02/08/2014, Additional history exists Colonoscopy Discontinued 08/01/2017, 08/01/2017 Colorectal Cancer Screening Discontinued Sigmoidoscopy (10 year) with FIT yearly Discontinued 08/01/2017, 08/01/2017 CT Colonography Discontinued FIT DNA Discontinued FIT Discontinued Sigmoidoscopy Discontinued Procedures Procedure Name Priority Date/Time Associated Diagnosis Comments COLONOSCOPY Routine 08/01/2017 10:34 AM EDT MAMMO SCREENING CAD AND ALEXIS BILATERAL Routine 02/07/2016 11:30 AM EST Visit for screening mammogram from Last 3 Months or Most Recently Relevant to Health Maintenance Results * COLONOSCOPY (08/01/2017 10:34 AM EDT) COLONOSCOPY [facility] Endoscopy ___ Procedure Date: 08/01/2017 10:34 AM Patient Name: Kate Johnson Date of : 1940 Age: 76 Order #: [id number] Instrument Name: [id number] ___ Procedure: Colonoscopy Indications: Hematochezia Providers: Ron Nuno MD, Willis Avila RN, Jessi Noriega, Humberto Driscoll MD Referring MD: Requesting Provider: Jose Alonso Medicines: Monitored Anesthesia Care Complications: No immediate complications. ___ Procedure: Pre-Anesthesia Assessment: - Prior to the procedure, a History and Physical was performed, and patient medications, allergies and sensitivities were reviewed. The patient's tolerance of previous anesthesia was reviewed. - The risks and benefits of the procedure and the sedation options and risks were discussed with the patient. All questions were answered and informed consent was obtained. - Patient identification and proposed procedure were verified prior to the procedure by the physician, the nurse and the anesthesiologist. The procedure was verified in the pre-procedure area in the endoscopy suite. The Colonoscope was inserted in the anus and under direct visualization, advanced to the terminal ileum. Careful inspection was made as the colonoscope was withdrawn. The colonoscopy was performed without difficulty. The patient tolerated the procedure well. Findings: The perianal and digital rectal examinations were normal. Numerous diverticula were found in the entire colon. There was evidence of clotted blood from the rectum to the ascending colon. The ascending colon had scant blood and the cecum was free of blood. There was no active bleeding identified. A 8 mm polyp was found in the cecum. The polyp was sessile, resection was not attempted in the setting of gastrointestinal bleeding The terminal ileum appeared normal. Moderate Sedation: Not applicable - See Anesthesia documentation Impression: - Diverticulosis in the entire examined colon, clotted blood from the rectum to the ascending colon suggesting that the site of bleeding was not in the Cecum and less likely in the ascending. Source of bleeding is likely diverticular. - One 8 mm polyp in the cecum, not resected - The examined portion of the ileum was normal. - No specimens collected. Recommendation: - Clear liquid diet today - Monitor for ongoing evidence of bleeding - If patient re-bleeds would discus with IR regarding urgent angiography as its likely our best chance at localization and control of bleeding. Procedure Code(s): --- Professional --- 27930, Colonoscopy, flexible; diagnostic, including collection of specimen(s) by brushing or washing, when performed (separate procedure) CPT copyright 2016 [employer]. All rights reserved. The codes documented in this report are preliminary and upon iv rn review may be revised to meet current compliance requirements. Attending Participation: I was present and participated during the entire procedure, including non-prater portions. Dr. Nicko Nuno __ Ron Nuno MD 08/01/2017 11:55:40 AM Number of Addenda: 0 Note Initiated On: 08/01/2017 10:34 AM PROVATION 08/01/2017 10:3 4 AM EDT us Unknown GENERAL SURGICAL ORDERABLES Marianna l Result PROVATION * Mammo Screen CAD and Alexis Bilat (Generic) (02/07/2016 11:30 AM EST) Anatomical Region Laterality Modality Breast Bilateral Mammography Narrative 02/08/2016 8:18 AM EST BILATERAL MAMMOGRAPHY REASON FOR EXAM: Screening TECHNIQUE: CC and MLO views were obtained of each breast using standard 2-D mammography as well as 3-D tomosynthesis. Computer aided detection was used. There are no prior images for comparison. FINDINGS: The breasts are almost entirely fatty. There are no suspicious microcalcifications, masses, or areas of distortion. CONCLUSION: No mammographic evidence of malignancy. RECOMMENDATION: The [employer] [employer] and The Society of Breast Imaging recommend annual screening beginning at age 40 for the general female population. Screening should continue as long as a woman is in good health and is expected to live 10 more years or longer. All women should be familiar with the known benefits, limitations, and potential harms linked to breast cancer screening. They should also know how their breasts normally look and feel and report any breast changes to a health care provider right away. Some women - because of their family history, a genetic tendency, or certain other factors - should be screened with MRIs along with mammograms. (The number of women who fall into this category is very small.) The patient and health care provider should discuss the patient history and decide if earlier screening and breast MRI are appropriate. A result letter has been sent to this patient by the [facility]. 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
== END 2024-11-18 16:42 | disposition home or self-care (01) ==
LOC: HO.HMCFM 15:37
PROVIDERS: PCP Physician Assistant Medical; Visit Provider Physician Assistant Medical
DX: I38 Endocarditis, valve unspecified (principal); R06.09 Other forms of dyspnea; R07.89 Other chest pain; R19.7 Diarrhea, unspecified

== ENCOUNTER → 2024-11-18 15:36 | Outpatient (BNVA) | payer MEDICARE, SELFPAY | PROVIDERS: PCP Physician Assistant Medical; Visit Provider Physician Assistant Medical | DX: I38 Endocarditis, valve unspecified (principal); R06.09 Other forms of dyspnea; R07.89 Other chest pain; R19.7 Diarrhea, unspecified; J43.9 Emphysema, unspecified; Z79.82 Long term (current) use of aspirin | CPT/HCPCS: 93005; 99212 ==

== ENCOUNTER 2024-12-20 11:23 | Outpatient (AMB) | payer MEDICARE, SELFPAY ==
--- NOTE | 2024-12-20 11:39 | A.OFFPC_ITS ---
Vital Signs 12/20/24 11:44 Height 5 ft 5.5 in Weight 181 lb 4 oz BMI 29.7 BP 122/72 Blood Pressure Location Rt brachial Position Sitting Respiration 18 Pulse 57 Pulse Source Pulse Oximeter Temp 97.7 F Temp Source Oral Pulse Oximetry (%) 96 Oxygen Delivery Method Room Air Intake Visit Reasons: follow up TORRE and change in bowel habits Intake Note: follow up torre and change in bowel habits Plasma Specialist Required: No Allergies hexachlorophene (From Phisohex) Allergy (Unknown, Verified 12/20/24 11:42) Unknown Seasonal Allergies Allergy (Verified 12/20/24 11:42) Cough anabolic steroid Allergy (Unknown, Uncoded 11/18/24 15:52) Unknown warfarin Allergy (Unknown, Uncoded 11/18/24 15:52) nose bleeds Tobacco use date assessed: 12/20/24 Fall risk assessment: 1 Fall in past year Last assessed Fall Risk: 12/20/24 Dental Screening Dental Screen Date: 12/20/24 Did you have a dental visit in the last 12 months?: No Did you have a dental problem in the last 6 months where you did not have access to dental care?: No Was dental information given to patient?: No HPI HPI Comments History of Present Illness Details The patient is an 83-year-old female with a past medical history of atrial fibrillation, GI bleed and COPD/emphysema and anxiety presenting for follow-up. Since her last visit her GI symptoms have improved. She cut back on processed foods and sugary foods and going out to dinner. She has an appointment with Gastroenterology on 02/21/2025. Denies blood in her stools. Denies weight loss. The patient saw Cardiology for evaluation of dyspnea on exertion. Echocardiogram ordered to check for worsening mitral valve function, and she was placed on Lasix because she does have some lower extremity edema. She reports this is much better on Lasix, but it has not changed her dyspnea. Pulmonology follow up was recommended. She had a chest x-ray which showed minimal bibasilar atelectasis. She has an appointment with pulmonology on 01/26/2025. In the past she was seen by [facility] pulmonology for COPD and emphysema. She was previously on medications which she said did not help, she also did pulmonary rehab. Denies history of blood clots. Denies chest pain, dizziness or syncope. Echocardiogram is scheduled 01/06/2025. Patient is on sotalol. History of atrial fibrillation status post ablation in 2017. She was previously on Coumadin which was discontinued due to GI bleed. She is on baby aspirin daily. ROS: Constitutional: Denies fatigue, fevers, chills, unexplained weight loss or night sweats. Respiratory: See HPI. Denies cough, wheezing, hemoptysis. Cardiovascular: Denies palpitations. See HPI. Gastrointestinal: No acid reflux, nausea, vomiting, blood in stools. See HPI Genitourinary: No dysuria, hematuria, urinary frequency. Neurologic: No headache, dizziness, syncope, unilateral weakness, ataxia, numbness or tingling in the extremities. Endocrine: No cold or heat intolerance. No polyuria or polydipsia. Physical exam: Constitutional: Alert, in no distress. Head: Normocephalic. Eyes: Pupils are equal, round and reactive to light. Extraocular muscles intact. Neck: Supple, Full range of motion. No lymphadenopathy. No palpable thyroid masses. Respiratory: Clear to auscultation. Cardiovascular: S1 S2 regular. No murmurs. . Gastrointestinal: Abdomen soft, non-tender, non-distended. Normal bowel sounds. No palpable masses. Normoactive bowel sounds in 4 quadrants. Neurologic: No focal neurological deficits Extremities: Warm and well perfused. No clubbing, cyanosis. 1+ bilateral lower extremity edema. Calves nontender, no erythema or calor. Psychiatric: Normal mood and affect [facility] Medical History (Updated 12/20/24 @ 15:47 by STEVEN Ohara) Elevated d-dimer Change in bowel habit Emphysema lung Diarrhea Chest tightness TORRE (dyspnea on exertion) Abnormal CBC Heart valve disorder Skin cancer Anxiety Fatigue History of GI bleed History of atrial fibrillation Left rotator cuff tear B12 deficiency Cataracts, bilateral Surgical History Hx of appendectomy Family History Mother Alzheimer disease Father Cardiovascular disease Social History (Updated 12/20/24 @ 11:44 by Tirso Salazar MA) Housing: Other (mobile home) Alcohol intake: current Comment: Wine Patient Tobacco Use Status: Former Tobacco user Cigarette Packs Per Day: 2 Years Smoked: 35 e-Cigarette/Vaping Use: Never Used Second Hand Smoke Exposure: No service: No Current occupational status: retired Cognitive needs: No Hearing needs: Yes (trouble hearing) Vision needs: No Questionnaire Thrive Questionnaire Date Thrive assessed: 11/18/24 I am a: Patient What is your living situation today?: I have a steady place to live Within the past 12 months, did the food you bought not last and you didn't have the money to get more?: Never true Within the past 12 months, did you worry whether your food would run out before you got money to buy more?: Never true Do you have trouble paying for medicines?: No Do you have trouble getting transportation to medical appointments?: No Do you have trouble paying your heating and electricity bill?: Yes Do you have trouble taking care of your child, family member or friend?: No Do you have trouble with day-to-day activities such as bathing, preparing meals, shopping, managing finances, etc.?: No Are you currently unemployed and looking for a job?: No Are you interested in more education?: No Please select the resources that you would like help with: None Currently or been in a relationship where the following occur: No concerns reported THRIVE Score: 1 CHASE-7 AMB Questionnaire CHASE-7 Date CHASE - 7 assessed: 07/12/24 Source: Developed by Drs. Cornelio Richardson, Mindy Chavez, Golden Knutson and colleagues, with an educational deya from [employer]. Physical exam (Primary Care) Vital Signs: Last Vital Signs Temp 97.7 F 12/20/24 11:44 Pulse 57 12/20/24 11:44 Resp 18 12/20/24 11:44 BP 122/72 12/20/24 11:44 Pulse Ox 96 12/20/24 11:44 Oxygen Delivery Method Room Air 12/20/24 11:44 BMI result Body Mass Index 29.7 Tobacco/Smoking Status: Tobacco use Status Tobacco use date assessed 12/20/24 12/20/24 11:47 Patient Tobacco Use Status Former Tobacco user 12/20/24 11:43 e-Cigarette/Vaping Use Never Used 12/20/24 11:43 Thrive Assessment: Date of Thrive Assessment Date Thrive assessed 11/18/24 12/20/24 11:41 Currently or been in a relationship where the following occur: No concerns reported Coding Level of Care Code Est Pt Level 4 (05687) Complex EM visit Add On G2211 Diagnoses Heart valve disorder I38 TORRE (dyspnea on exertion) R06.09 Diarrhea, unspecified type R19.7 Diarrhea type: unspecified type Assessment & Plan Assessment & Plan (1) Heart valve disorder: Code(s): I38 - Endocarditis, valve unspecified Category: Medical (2) TORRE (dyspnea on exertion): Code(s): R06.09 - Other forms of dyspnea Category: Medical (3) Diarrhea: Code(s): R19.7 - Diarrhea, unspecified Category: Medical Qualifiers: Diarrhea type: unspecified type Qualified Code(s): R19.7 - Diarrhea, unspecified Plan In summary this is an 84-year-old female presenting for follow up for bowel changes and dyspnea. She will have her lab work done today which included a GI panel, stool occult blood x3, blood work. She modified her diet, and she has had some improvement in symptoms. She has a gastroenterology consult scheduled. Patient saw Cardiology. She has an echocardiogram scheduled. Lasix has helped with lower extremity edema. She has an appointment scheduled with pulmonology. Trial of budesonide 1 puff twice daily. Gargle and rinse mouth after use. She has an albuterol inhaler, and I recommended she try using this 15 minutes prior to walking her dog or every 4 hours as needed for cough, wheezing or shortness of breath. She did not have lab work completed at her last visit which included a D-dimer. She will have this done. Follow up in 1 month. Medications: New budesonide 180 mcg/actuation Gargle and rinse mouth and brush teeth after use. 1 inh inhalation BID 1 ea 3RF
[2024-12-20 11:44] VITALS: BP 122/72; PULSE 57; RESP 18; TEMP 36.5; O2SAT 96; BMI 29.7
--- OUTSIDE RECORDS SUMMARY | 2024-12-20 14:37 | XMS_ITS | Clinical Summary ---
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 Procedure Code(s): --- Professional --- 52320, Colonoscopy, flexible; diagnostic, including collection of specimen(s) by brushing or washing, when performed (separate procedure) CPT copyright 2016 [employer] [place] [employer]. All rights reserved. The codes documented in this report are preliminary and upon leaf tinner review may be revised to meet current [...] No mammographic evidence of malignancy. 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
--- OUTSIDE RECORDS SUMMARY | 2024-12-20 14:37 | XMS_ITS | Clinical Summary ---
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
== END 2024-12-20 12:11 | disposition home or self-care (01) ==
PROVIDERS: PCP Physician Assistant Medical; Visit Provider Physician Assistant Medical
DX: I38 Endocarditis, valve unspecified (principal); R06.09 Other forms of dyspnea; R19.7 Diarrhea, unspecified

== ENCOUNTER 2024-12-20 11:23 | Outpatient (REF) | payer MEDICARE, SELFPAY ==
[2024-12-20 14:28] LABS: Hematocrit 48.9 % (37.0-47.0); Hemoglobin 15.8 g/dl (12.0-16.0); Imm Gran Abs Auto 0.04 X10*3/uL (0.00-0.03); Imm Gran Pct Auto 0.6 % (0.0-0.4); Lymphocytes Absolute Auto 1.2 X10*3/uL (1.2-4.9); MANUAL DIFF FLAG SCAN; Mean Corpuscular HGB Conc 32.3 g/dl (31.0-35.0); Mean Corpuscular Hemoglobin 33.0 pg (27.0-33.0); Mean Corpuscular Volume 102.1 fL (80.0-98.0); NRBC Abs Auto 0.000 X10*3/uL (0.0-0.012); NRBC Pct Auto 0.0 /100WBC (0.0-0.2); PLT CLUMP 1; Red Blood Count 4.79 X10*6/uL (4.20-5.50); SCAN SMEAR FLAG 1
[2024-12-20 14:50] LABS: Platelet Count 218 X10*3/uL (160-400); White Blood Count 6.8 X10*3/uL (4.8-10.8)
[2024-12-20 15:05] LABS: Troponin-I High Sensitivity 11.8 ng/L (<3.5-17.0)
[2024-12-20 15:21] LABS: Alanine Aminotransferase 18 U/L (0-31); Albumin Level 4.0 g/dL (3.5-5.0); Alkaline Phosphatase 67 U/L (39-117); Anion Gap 14 (12-20); Aspartate Amino Transferase 27 U/L (5-31); Blood Urea Nitrogen 17 mg/dL (9-16); Calcium 9.2 mg/dL (8.4-10.2); Carbon Dioxide 27 mmol/L (22-29); Chloride 103 mmol/L (96-108); Estimated Glomerular Filt Rate > 60; Lipase 13 U/L (8-78); Potassium 4.3 mmol/L (3.3-5.1); Sodium 140 mmol/L (135-145); Total Protein 7.4 g/dL (6.5-8.0); Unsaturated Iron Binding 203 ug/dL
[2024-12-20 15:30] LABS: Ferritin 79 ng/mL (10-250)
[2024-12-20 15:34] LABS: Folate 5.0 ng/mL (> or = 4.0); Vitamin B12 557 pg/mL (200-900)
[2024-12-20 15:39] LABS: D Dimer High Sensitivity 1317 NG/ML
[2024-12-20 15:46] LABS: Amylase 86 U/L (28-100); Iron 112 mcg/dL (30-160); Percent Iron Saturation 36 % (15-50); Total Iron Binding Capacity 315 mcg/dL (228-428)
[2024-12-20 18:39] LABS: Appearance Urine Clear; Glucose Urine UA >=1000 mg/dL (Negative); PH 6.0 (5.0-9.0); Specific Gravity - Urine 1.020 (1.005-1.025); UMIC TRIGGER UACC YES
[2024-12-20 20:55] LABS: UACC Culture Trigger YES
== END 2024-12-20 11:24 | disposition home or self-care (01) ==
LOC: HO.WFDLDS 11:23
PROVIDERS: PCP Physician Assistant Medical; Visit Provider Physician Assistant Medical
DX: I38 Endocarditis, valve unspecified (principal); R07.89 Other chest pain; R79.89 Other specified abnormal findings of blood chemistry; R06.09 Other forms of dyspnea; R19.7 Diarrhea, unspecified; J43.9 Emphysema, unspecified; F41.9 Anxiety disorder, unspecified; D64.9 Anemia, unspecified
CPT/HCPCS: 80053; 81001; 82150; 82607; 82728; 82746; 83540; 83690; 84443; 84484; 85025; 85379; 87086; 87088; 87186; 99212

== ENCOUNTER 2025-01-06 15:00 | Outpatient (AMB) | payer MEDICARE, SELFPAY ==
--- NOTE | 2025-01-06 15:02 | A.OFFVIS_ITS ---
Intake Vital Signs 01/06/25 15:16 Height 5 ft 5.5 in Weight 177 lb 4 oz BMI 29.0 BP 110/64 Blood Pressure Location Lt brachial Position Sitting Respiration 16 Pulse 74 Pulse Source Pulse Oximeter Temp 97.2 F Temp Source Temporal Artery Scan Pulse Oximetry (%) 95 Oxygen Delivery Method Room Air Intake Visit Reasons: mawv- see comments Intake Note: Kate presents in the office today for her medicare annual wellness visit. 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 Allergies hexachlorophene (From Phisohex) Allergy (Unknown, Verified 01/06/25 15:07) Unknown Seasonal Allergies Allergy (Verified 01/06/25 15:07) Cough sulfamethoxazole (From Bactrim) Adverse Reaction (Mild, Verified 01/06/25 15:34) diarrhea trimethoprim (From Bactrim) Adverse Reaction (Mild, Verified 01/06/25 15:34) diarrhea anabolic steroid Allergy (Unknown, Uncoded 01/06/25 15:07) Unknown warfarin Allergy (Unknown, Uncoded 01/06/25 15:07) nose bleeds Post menopausal: Yes Do you need a note to return to daycare/school/sports/work: No HPI HPI Comments History of Present Illness Details The patient is an 83-year-old female with a past medical history of atrial fibrillation, GI bleed and COPD/emphysema and anxiety presenting for [facility]. Since her last visit her GI symptoms have improved. She cut back on processed foods and sugary foods and going out to dinner. She has an appointment with [facility] Gastroenterology on 02/21/2025. Denies blood in her stools. She has had mild weight loss since starting furosemide and notices decreased fluid in her lower legs. She dropped down a shoe size. The patient saw Cardiology ([facility]) for evaluation of dyspnea on exertion. Initiating Lasix did not change dyspnea. She had an echocardiogram 01/06/2025 which demonstrated LVEF 55-60%, no regional wall motion abnormalities, mild dilation of the left atrium and no significant valve disease. She had a chest x-ray which showed minimal bibasilar atelectasis. She has an appointment with [facility] pulmonology on 01/26/2025. She declined inhaled corticosteroids due to prior side effects, and I prescribed Spiriva, but she did not pick it up yet. She has not been using. In the past she was seen by [facility] pulmonology for COPD and emphysema. She was previously on medications which she said did not help, she also did pulmonary rehab. Patient is on sotalol. History of atrial fibrillation status post ablation in 2017. She was previously on Coumadin which was discontinued due to GI bleed. She is on baby aspirin daily. She sees Dr. Fierro for eye exams. She had a recent UTI treated with Bactrim. Reports diarrhea on it, but she completed the course. Denies UTI symptoms. Declines bone density and mammogram. Declines flu vaccine. She will get the pneumonia vaccine at the pharmacy. She received the shingles and RSV vaccines. Last tetanus immunization 01/07/20. ROS: Constitutional: No unexplained weight loss, fever, chills, fatigue or night sweats. Eyes: No vision changes, blurry vision, double vision, eye pain, eye redness, eye discharge. ENT: No hearing loss, sneezing, congestion, runny nose or sore throat. Respiratory: per HPI Cardiovascular: No chest pain, chest pressure or chest discomfort. No palpitations. see HPI Gastrointestinal: Per HPI. Genitourinary: No dysuria, hematuria, urinary frequency. Neurologic: No headache, dizziness, syncope, unilateral weakness, ataxia, numbness or tingling in the extremities. Musculoskeletal: No muscle pain, back pain, joint pain or swelling. Hematologic/Lymphatics: No bleeding or bruising. No painful lymph nodes. Skin: No rash Endocrine: No cold or heat intolerance. No polyuria or polydipsia. Psychiatric: No depression or anxiety. No SI/HI. Physical exam: Constitutional: Alert, in no distress. Eyes: Pupils are equal, round and reactive to light. Extraocular muscles intact. Ear, Nose and Throat: Canals clear. TMs normal. Normal nasal mucosa. No nasal discharge. No oral lesions. Neck: Supple, Full range of motion. No lymphadenopathy. No palpable thyroid masses. Respiratory: Clear to auscultation. Cardiovascular: S1 S2 regular. No murmurs. No carotid bruits. Gastrointestinal: Abdomen soft, non-tender, non-distended. Normal bowel sounds. No palpable masses. Genitourinary: No costovertebral angle tenderness. Neurologic: No focal neurological deficits. Skin: No rashes Musculoskeletal: No gross deformities. Extremities: Warm and well perfused. No clubbing, cyanosis or edema. 1+ bilateral lower extremity edema Psychiatric: Normal mood and affect [facility] Medical History (Updated 12/20/24 @ 15:47 by STEVEN Ohara) Elevated d-dimer Change in bowel habit Emphysema lung Diarrhea Chest tightness DIEGO (dyspnea on exertion) Abnormal CBC Heart valve disorder Skin cancer Anxiety Fatigue History of GI bleed History of atrial fibrillation Left rotator cuff tear B12 deficiency Cataracts, bilateral Surgical History Hx of appendectomy Family History Mother Alzheimer disease Father Cardiovascular disease Social History (Updated 01/06/25 @ 15:10 by Rupa Gonzalez CMA) Housing: Other (mobile home) Alcohol intake: current Comment: Wine Patient Tobacco Use Status: Former Tobacco user Cigarette Packs Per Day: 2 Years Smoked: 35 e-Cigarette/Vaping Use: Never Used Second Hand Smoke Exposure: No service: No Current occupational status: retired Cognitive needs: No Hearing needs: Yes (trouble hearing) Vision needs: No Questionnaire Medicare Wellness Checkup What is your age?: 80 or older What gender do you identify with?: female During the past 4 weeks, how much have you been bothered by emotional problems such as feeling anxious, depressed, irritable, sad or downhearted, and blue?: not at all During the past 4 weeks, has your physical & emotional health limited your social activities with family, friends, neighbors, or groups?: not at all During the past 4 weeks, how much bodily pain have you generally had?: moderate pain (In bed) During the past 4 weeks, was someone available to help you if you needed & wanted help?: yes, as much as I wanted During the past 4 weeks, what was the hardest physical activity you could do for at least 2 minutes?: moderate (walking the dog) Can you get to places out of walking distance without help? (For eg., can you travel alone on buses, taxis or drive your car?): Yes Can you go shopping for groceries or clothes without someone's help?: Yes Can you prepare your own meals?: Yes Can you do your housework without help?: Yes Because of any health problems, do you need the help of another person with your personal care needs such as eating, bathing, dressing or getting around the house?: No Can you handle your own money without help?: Yes During the past 4 weeks, how would you rate your health in general?: very good During the past 4 weeks how have things been going for you?: pretty well Are you having difficulties driving your car?: no Do you always fasten your seat belt when you are in a car?: yes, usually During past 4 weeks, have you been bothered by the following: never: Falling or dizzy when standing up, Sexual problems?, Trouble eating well? and Problems using the telephone?, seldom: Tiredness or fatigue? (Takes 2 naps day) and sometimes: Teeth or denture problems? (Bites the side of her mouth) Have you fallen 2 or more times in the past year?: No Are you afraid of falling?: No Are you a smoker?: no During the past 4 weeks, how many drinks of wine, beer, or other alcoholic beverages did you have?: 1 drink or less per week Do you exercise for about 20 minutes 3 or more times a week?: yes, all the time (Walks the dog) Have you been given information to help with the following?: no: Hazards in your house that might hurt you? and no: Keeping track of your medications? How often do you have trouble taking medicines the way you have been told to take them?: I always take medicine as prescribed How confident are you that you can control & manage most of your health problems?: very confident What is your race?: White Mini Mental State Exam (MMSE) Orientation What is the (year) (season) (date) (day) (month)?: season, date, day and month Where are we (state) (county) (town or city) (hospital) (floor)?: state, county, hospital/clinic and floor Registration Name of 3 unrelated objects clearly and slowly, then ask patient to repeat all 3 of them. (1st repeat determines score. Make sure they can repeat all three): object 1, object 2 and object 3 Attention & Calculation (CHOOSE ONE) Spell WORLD backwards (DLROW): 5 letters Recall Ask patient to repeat the 3 items from question #3.: object 1, object 2 and object 3 Language Show patient a wristwatch & ask what it is. Repeat for pencil.: watch and pencil Ask the patient to repeat the phrase 'No ifs, ands, or buts' after you.: correct Ask the patient to 'take a piece of paper with their right hand' 'fold paper in half' 'place paper on floor': take paper in right hand, fold paper in half and place paper on floor Print the sentence 'CLOSE YOUR EYES' on a piece. If patient actually closes eyes then score.: followed written direction Give patient a blank piece of paper & ask to write a sentence. Score if it co ntains a noun & verb.: sentence contains subject and verb Ask patient to copy figure of intersecting pentagons exactly. Score if all 10 angles & 2 intersects are included.: all 10 angles present & 2 are intersected Score Score: 28 Activity of Daily Living Bathing - sponge bath, tub bath or shower: receives no assistance (gets in/out by self, if usual bathing means Dressing - getting clothes from closets & drawers, including inner/outer garments & fasteners.: gets clothes & gets completely dressed without help Toileting - going to the 'toilet room' for urine/bowel elimination & cleaning self/arranging clothes: goes to toilet room, cleans self, arranges clothes without help Transfer: moves in & out of bed and chair without help (may use support object) Continence: has occasional 'accidents' Feeding: feeds self without help Total Score: 0 Information obtained from: patient Using telephone: independent Traveling: independent Shopping: independent Preparing meals: independent Housework: independent Taking medicine: independent Managing money: independent Physical Exam Vital Signs: Last Vital Signs Temp 97.2 F 01/06/25 15:16 Pulse 74 01/06/25 15:16 Resp 16 01/06/25 15:16 BP 110/64 01/06/25 15:16 Pulse Ox 95 01/06/25 15:16 Oxygen Delivery Method Room Air 01/06/25 15:16 BMI result Body Mass Index 29.0 Assessment & Plan Assessment & Plan (1) Medicare annual wellness visit, subsequent: Code(s): Z00.00 - Encounter for general adult medical examination without abnormal findings (2) DIEGO (dyspnea on exertion): Code(s): R06.09 - Other forms of dyspnea (3) Diarrhea: Code(s): R19.7 - Diarrhea, unspecified Qualifiers: Diarrhea type: unspecified type Qualified Code(s): R19.7 - Diarrhea, unspecified Plan Patient is seen today for a routine physical. As part of this visit we reviewed the following issues, which are considered and essential part of preventative health in this age group: - Breast Cancer screening - Blood pressure screening - Cholesterol screening - Osteoporosis prevention including calcium/vitamin D intake, weight bearing exercise & smoking cessation - Nutritional and exercise counseling - Screening for depression - Recommendations about immunizations - Recommendation of an eye exam - Screening for substance abuse She modified her diet, and she has had some improvement in symptoms. She has a gastroenterology consult scheduled. Patient saw Cardiology. Reviewed echocardiogram with the patient. Lasix has helped with lower extremity edema. She has an appointment scheduled with pulmonology. Advised patient to pick up worker Spiriva as a trial and continue albuterol every 4 hours as needed for cough, wheezing or shortness of breath and try using this 15 minutes prior to walking her dog which is primarily when she is having symptoms. Follow up in 6 months. Quality Reporting (2019) Fall Risk Screening ([facility] 139) Last assessed Fall Risk: 01/06/25 Fall risk assessment: No Falls in past year Coding Level of Care Code Medicare Subsequent (G0439) Diagnoses Medicare annual wellness visit, subsequent Z00.00 DIEGO (dyspnea on exertion) R06.09 Diarrhea, unspecified type R19.7 Diarrhea type: unspecified type
[2025-01-06 15:16] VITALS: BP 110/64; PULSE 74; RESP 16; TEMP 36.2; O2SAT 95; BMI 29.0
--- OUTSIDE RECORDS SUMMARY | 2025-01-06 18:16 | XMS_ITS | Clinical Summary ---
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 Procedure Code(s): --- Professional --- 27777, Colonoscopy, flexible; diagnostic, including collection of specimen(s) by brushing or washing, when performed (separate procedure) CPT copyright 2016 [employer]. All rights reserved. The codes documented in this report are preliminary and upon head porter baggage review may be revised to meet current [...] No mammographic evidence of malignancy. RECOMMENDATION: The [employer] and The Society of [...] Recently Relevant to Health Maintenance Insurance MEDICARE [facility] Advance Directives Documents on File Type Date Recorded Patient Invas Tech Expl anation Advance Directives and Maggy palacios [...]
--- OUTSIDE RECORDS SUMMARY | 2025-01-06 18:16 | XMS_ITS | Clinical Summary ---
Author Organization 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
== END 2025-01-06 16:00 | disposition home or self-care (01) ==
LOC: HO.HMCFM 15:00
PROVIDERS: PCP Physician Assistant Medical; Visit Provider Physician Assistant Medical
DX: Z00.00 Encounter for general adult medical examination without abnormal findings (principal); R06.09 Other forms of dyspnea; R19.7 Diarrhea, unspecified

== ENCOUNTER 2025-01-26 10:06 | Outpatient (AMB) | payer MEDICARE, SELFPAY ==
[2025-01-26 10:10] VITALS: BP 126/78; PULSE 61; O2SAT 94; BMI 30.2
--- NOTE | 2025-01-26 10:10 | A.OFFVIS_ITS ---
Vital Signs 01/26/25 10:10 Height 5 ft 5.5 in Weight 184 lb 2 oz BMI 30.2 BP 126/78 Blood Pressure Location Rt brachial Position Sitting Pulse 61 Pulse Source Pulse Oximeter Pulse Oximetry (%) 94 Oxygen Delivery Method Room Air Intake Visit Reasons: Dyspnea/ Emphysema Allergies hexachlorophene (From Phisohex) Allergy (Unknown, Verified 01/26/25 10:14) Unknown Seasonal Allergies Allergy (Verified 01/26/25 10:14) Cough sulfamethoxazole (From Bactrim) Adverse Reaction (Mild, Verified 01/26/25 10:14) diarrhea trimethoprim (From Bactrim) Adverse Reaction (Mild, Verified 01/26/25 10:14) diarrhea anabolic steroid Allergy (Unknown, Uncoded 01/26/25 10:14) Unknown warfarin Allergy (Unknown, Uncoded 01/26/25 10:14) nose bleeds HPI HPI Dyspnea/ Emphysema: Details: Kate is a pleasant 84 year old female, former 50+ pack-year history, quit 30 years with underlying COPD, emphysema, atrial fibrillation, h/o GI bleed and anxiety. She was referred by PCP for pulmonary evaluation and presents today accompanied by her daughter. In the past she was under the care of pulmonary years ago however would like to transition to this office. She reports worsening dyspnea over the last year however has been persistent for quite some time. The patient reports that breathing has been awful and has worsened over the last couple of months, finding it very difficult to walk up her driveway which is at an incline. The patient experiences a dry cough, although sometimes it produces white sputum, and reports no wheezing. The cough is worse when lying down to go to bed and during the winter. The patient was previously diagnosed with COPD based on a pulmonary function test from 2020, report below.The patient has previously tried inhalers, including Anoro, but did not find them effective and was concerned about steroids causing bleeding, so did not trial Advair. The patient has a history of bleeding attributed to steroid use, including nosebleeds and a past episode of internal bleeding that required three blood transfusions. The patient is also prone to epistaxis, which has not occurred in over a year, and tends to happen more in the winter season. History is not clear, will attempt to obtain prior records. The patient has an albuterol inhaler which she obtained from a neighbor however has yet to use and a prescription for Spiriva which has not been filled due to uncertainty on how to use it. The patient started smoking at age 11, smoked up to two packs per day, and quit about 30 years ago after the of her 1st grandchild. There is a history of having completed pulmonary rehabilitation, which she did not find any benefit from. The patient denies any personal history of asthma or seasonal allergies, and there is no known family history of respiratory conditions. Denies any occupational exposures. Patient underwent cardiology evaluation through [facility] due to history of atrial fibrillation and ongoing dyspnea. Echo from December 2024 demonstrated LVEF 55-60%. She was started on Lasix for ongoing bilateral lower extremity edema which has improved however no change in dyspnea. Chest x-ray from December 2024 demonstrated minimal bibasilar atelectasis otherwise no significant abnormalities. She denies any prior chest CTs. [facility] Medical History (Updated 01/26/25 @ 12:40 by Awilda Lozada NP) Elevated d-dimer Change in bowel habit Emphysema lung Diarrhea Chest tightness DIEGO (dyspnea on exertion) Abnormal CBC Heart valve disorder Skin cancer Anxiety Fatigue History of GI bleed History of atrial fibrillation Left rotator cuff tear B12 deficiency Cataracts, bilateral Surgical History Hx of appendectomy Family History Mother Alzheimer disease Father Cardiovascular disease Social History Housing: Other (mobile home) Alcohol intake: current Comment: Wine Patient Tobacco Use Status: Former Tobacco user Cigarette Packs Per Day: 2 Years Smoked: 35 e-Cigarette/Vaping Use: Never Used Second Hand Smoke Exposure: No service: No Current occupational status: retired Cognitive needs: No Hearing needs: Yes (trouble hearing) Vision needs: No Review of Systems Const Denies chills, Denies excessive sweating, Denies fever(s), Denies headache(s) and Denies night sweats Eyes Denies dry eyes, Denies irritation and Denies itchy eyes ENT Reports Normal hearing present, Denies headache(s), Denies nasal congestion, Denies nasal discharge, Denies post nasal drip and Denies sore throat Card Denies chest pain, Denies chest pain at rest, Denies chest pain with activity, Denies claudication, Denies leg edema, Denies orthopnea and Denies paroxysmal nocturnal dyspnea Resp Denies chest congestion, Denies excessive phlegm production, Denies pain on inspiration, Denies pain with cough, Denies stridor and Denies wheezing Musc Denies myalgias Neuro Reports Normal hearing present and Denies headache(s) Endo Denies excessive sweating Patricio/Lymph Denies lymphadenopathy Aller/Immun Denies itchy eyes, Denies seasonal rhinorrhea and Denies wheezing Physical Exam Vital Signs: Last Vital Signs Pulse 61 01/26/25 10:10 BP 126/78 01/26/25 10:10 Pulse Ox 94 01/26/25 10:10 Oxygen Delivery Method Room Air 01/26/25 10:10 BMI result Body Mass Index 30.2 Const General: cooperative, healthy appearing, comfortable, no acute distress, well developed and alert Orientation/consciousness: patient oriented x3 HEENT Head: Yes normal to inspection, Yes normocephalic and Yes atraumatic Ears: hearing grossly normal bilaterally and external ears normal Eyes General: appearance normal, both eyes and all related structures Eyelids: Yes eyelids normal Sclerae: sclerae normal EOM: EOMs intact bilaterally Neck Neck: Yes normal visual inspection and Yes no lymphadenopathy Lymphatic: no lymphadenopathy noted Chest Chest palpation & inspection: normal inspection of the chest Resp Other: Coarse inspiratory crackles right lower lobe Effort & Inspection: normal respiratory effort, able to speak in complete sentences, no audible wheezes, no cough, no stridor, not tachypneic, no tripod positioning and no use of accessory muscles Auscultation: clear to auscultation bilaterally Cardio Jugular venous distension: no JVD Rate: regular rate Rhythm: regular rhythm Skin Other: warm, dry General skin exam: no rashes or lesions noted Neuro General: patient oriented x3 Cranial nerves: Yes Normal hearing present Cognition (Neuro): normal cognition Gait exam (Neuro): Normal gait present Extrem General: Yes normal to inspection, Yes capillary refill normal, Yes no clubbing, cyanosis or edema and Yes no pedal edema Psych Appearance: grossly normal and well kempt Speech and movement: Normal speech and movement present and Clear speech present Affect: normal affect Attitude: cooperative Thought process: Normal thought process present Thought content: Normal thought content present Insight: Good insight present (Psych) Judgement: Good judgement present (Psych) Results Reviewed Results Reviewed: PFT's Complete Date of test: 03/08/2020 Test list: Chang Post VOL(Box) DLCO Lab: [facility] Name: KATE PIERRE Sex: F Age: 79 Race: W Height: 67 In Weight: 212 LB BMI: 33.3 Referring: Jose Manuel Grande M.D. SPIROMETRY: FEV1 1.63, 75%; FVC 2.38, 82%; FEV1/FVC 68.0%; PEFR 5.39, 105% Post FEV1 1.67, 77% (2%); FVC 2.70, 92% (13%); PEFR 6.21, 121%; (15%) Slow Vital Capacity: 2.72 93% LUNG VOLUMES (Box): TLC 7.90, 144%; FRC 5.85, 183%; RV 5.18, 202%; sGaw 0.09, predicted > 0.12 DIFFUSING CAPACITY: DLCO and KCO are 74% predicted adjusted for lung volume, barometric pressure DLCO 13.64, 67%; not adjusted for Hb INTERPRETATION: 1. Moderate, partially reversible obstructive ventilatory defect. 2. The flow volume loop is consistent with airflow obstruction. 3. Increased total lung capacity and functional residual capacity consistent with air trapping and hyperinflation. 4. Mildly reduced specific airway conductance consistent with airflow obstruction. 5. Mildly reduced carbon monoxide diffusing capacity. 6. Normal resting pulse oximetry on room air. 7. Consistent with Emphysema. A reactive component is present. Clinical correlation. Interpreting Physician: Ricki Arriaga M.D. RESULT: Chest 2 Views Frontal and Lat PA and lateral chest dated November 23, 2024. Comparison films are from November 10, 2020. HISTORY: Shortness of breath. FINDINGS: The cardiac silhouette is within normal limits for size. Mural calcifications are noted in the aorta and Airways. Some minimal linear attenuation is present the lung bases consistent with atelectasis. No pleural effusion is identified. Degenerative changes are noted in the spine. IMPRESSION: Minimal bibasilar atelectasis. Examination 92365. Thank you for allowing me to participate in the care of this patient. WSN: [id number] Ordering Physician: Renetta Pablo Reason For Exam shortness of breath Signature Line Dictated By: Kwesi Russell MD Dictated Date/Time: 11/23/24 1:15 pm Reviewed By: Kwesi Russell MD Signed By: Kweis Russell MD Signed Date/Time: 11/23/24 1:15 pm Transcribed By: SHARON Transcribed Date/Time: 11/23/24 1:15 pm Assessment & Plan Assessment & Plan (1) COPD (chronic obstructive pulmonary disease): Code(s): J44.9 - Chronic obstructive pulmonary disease, unspecified Category: Medical (2) Emphysema lung: Code(s): J43.9 - Emphysema, unspecified Category: Medical (3) Personal history of tobacco use: Code(s): Z87.891 - Personal history of nicotine dependence Category: Social Hx Plan Discussed with the patient that the a prior PFT from 2020 demonstrated moderate, partially reversible obstructive ventilatory defect. Will update PFT to assess severity and send albuterol MDI to use as needed. Instructed the patient on the proper use of the albuterol inhaler and discussed potential side effects such as tremors, tachycardia or heart palpitations, for which she will monitor for. We reviewed the patient's past experience with inhalers and concern about steroid- related side effects, specifically bleeding. Clarified that the dose in an inhaled steroid is significantly lower than in pills or injections. We agreed to defer starting a maintenance inhaler until after the PFT results and after obtaining records regarding past bleeding episodes. Recommended using a home humidifier to manage dryness that may be contributing to nosebleeds. Patient with coarse inspiratory crackles right lower lobe will send for chest x-ray to further assess. All questions were answered and patient is in agreement of plan. Will follow-up to review results of PFT or sooner if needed. Orders: Orders PFT pulmonary function test Today J44.9 - Chronic obstructive pulmonary disease, unspecified Medications: New albuterol sulfate 90 mcg/actuation 1 puff inhalation Q4-6H PRN 1 ea 3RF shortness of breath or wheezing Discontinued tiotropium bromide 2.5 mcg/actuation (Spiriva Respimat) Discontinued Reason: Patient Completed Course 2 inhalations inhalation QAM 4 grams 0RF Coding Level of Care Code New Pt Level 4 (34202) Complex visit Add On G2211 Diagnoses COPD (chronic obstructive pulmonary disease) J44.9 Emphysema lung J43.9 Personal history of tobacco use Z87.891
--- OUTSIDE RECORDS SUMMARY | 2025-01-26 11:33 | XMS_ITS | Clinical Summary ---
Author Organization [facility] Address 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 Procedure Code(s): --- Professional --- 08330, Colonoscopy, flexible; diagnostic, including collection of specimen(s) by brushing or washing, when performed (separate procedure) CPT copyright 2016 [employer]. All rights reserved. The codes documented in this report are preliminary and upon robotic machine tender production review may be revised to meet current [...] No mammographic evidence of malignancy. 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
--- OUTSIDE RECORDS SUMMARY | 2025-01-26 11:33 | XMS_ITS | Clinical Summary ---
Author Organization [facility] ity Address [address] [place] [address] Care Team Providers Care Organ Tuner Electronic Name Role Phone Unavailable Primary Care Provider [...]
== END 2025-01-26 10:56 | disposition home or self-care (01) ==
LOC: HO.HPSW 10:07
PROVIDERS: PCP Physician Assistant Medical; Referring Provider Physician Assistant Medical; Visit Provider Nurse Practitioner Family
DX: J44.9 Chronic obstructive pulmonary disease, unspecified (principal); J43.9 Emphysema, unspecified; Z87.891 Personal history of nicotine dependence
CPT/HCPCS: 99204; G2211

== ENCOUNTER → 2025-01-26 10:06 | Outpatient (BNVA) | payer MEDICARE, SELFPAY | PROVIDERS: PCP Physician Assistant Medical; Referring Provider Physician Assistant Medical; Visit Provider Nurse Practitioner Family | DX: J44.9 Chronic obstructive pulmonary disease, unspecified (principal); J43.9 Emphysema, unspecified; Z87.891 Personal history of nicotine dependence | CPT/HCPCS: 99202 ==